=== PATIENT | female | born 1980 | race Caucasian/White ===

== ENCOUNTER → 2018-12-28 | Outpatient (CLI) | payer OTHER ==
[2018-12-28 23:39] LABS: Albumin 3.8 g/dL (3.80-4.90); Albumin/Globulin Ratio 1.65 (1.60-3.17); Anion Gap 8.7 mmol/L (4.00-12.00); BUN/Creat Ratio 23.33 Ratio (12.00-20.00); Calcium 8.7 mg/dL (8.7-10.3); Carbon Dioxide 25.3 mmol/L (21.6-31.8); Globulin 2.3 g/dL (1.6-3.3); Potassium 4.6 mmol/L (3.5-5.5); Total Bilirubin 0.4 mg/dL (0.3-1.2); Total Protein 6.1 g/dL (6.2-8.2)
== END | disposition home or self-care (01) ==
LOC: LABWHC1 14:20
PROVIDERS: ATTEND Family Medicine
DX: F19.10 Other psychoactive substance abuse, uncomplicated (principal)
CPT/HCPCS: 36415; 80053

== ENCOUNTER 2023-07-03 10:18 | Emergency (ER) | payer OTHER ==
--- NOTE | 2023-07-03 10:42 | ED ---
URI HPI - General Chief Complaint: Upper Respiratory Infection Stated Complaint: congestion Time Seen by Provider: 07/03/23 10:30 Source: patient, RN notes reviewed Mode of arrival: ambulatory Limitations: no limitations - History of Present Illness Initial Comments: 43-year-old female, with no significant past medical history, presents to the emergency department from [place] for chief complaint of cough, congestion over the last 4 days. States that her symptoms started 4 days ago with an episode of emesis. She states that she has had a worsening dry cough, runny nose, shortness of breath, congestion and has had a fever over the last 2 days felt rundown and fatigued. She also states she been experiencing postnasal drip and sinus pressure. patient was given Tylenol and Motrin this morning for fever. She admits to rib pain on inspiration that started 4 days ago is reproducible to palpation worsens with cough. Denies chest pain, palpitations, dizziness, diarrhea, nausea. - Related Data Previous Rx's Medication Instructions Recorded Azithromycin [Zithromax] 500 mg PO DAILY #5 tab 07/03/23 Allergies Allergy/AdvReac Type Severity Reaction Status Date / Time haloperidol [From Haldol] AdvReac Unknown Verified 07/03/23 10:23 Review of Systems ROS Statement: Those systems with pertinent positive or pertinent negative responses have been documented in the HPI. ROS Other: All systems not noted in ROS Statement are negative. Past Medical History Additional Past Medical History / Comment(s): kidney stones Additional Past Surgical History / Comment(s): 3 c sections, abcess lances, Past Psychological History: Bipolar Smoking Status: Current every day smoker Past Alcohol Use History: None Reported Past Drug Use History: Opiates General Exam Limitations: no limitations General appearance: alert, in no apparent distress Head exam: Present: atraumatic, normocephalic, normal inspection Eye exam: Present: normal appearance, PERRL, EOMI. Absent: scleral icterus, conjunctival injection, periorbital swelling ENT exam: Present: normal exam, mucous membranes moist Neck exam: Present: normal inspection, lymphadenopathy (anterior cervical and tonsillar). Absent: tenderness, meningismus Respiratory exam: Present: wheezes, rhonchi, decreased breath sounds Cardiovascular Exam: Present: regular rate, normal rhythm, tachycardia GI/Abdominal exam: Present: soft, normal bowel sounds. Absent: distended, tenderness, guarding, rebound, rigid Extremities exam: Present: normal inspection, full ROM, normal capillary refill. Absent: tenderness, pedal edema, joint swelling, calf tenderness Back exam: Present: normal inspection Neurological exam: Present: alert, oriented X3, CN II-XII intact Psychiatric exam: Present: normal affect, normal mood Skin exam: Present: warm, dry, intact, normal color. Absent: rash Course Vital Signs 07/03/23 07/03/23 07/03/23 10:20 10:30 11:31 Temperature 98.8 F Pulse Rate 113 H 94 Respiratory 18 16 18 Rate Blood Pressure 135/70 124/84 O2 Sat by Pulse 95 94 L Oximetry Medical Decision Making - Medical Decision Making Was pt. sent in by a medical professional or institution (, PA, DRIP PUMPER, urgent care, hospital, or usp...) When possible be specific @ -Was sent from [facility] Did you speak to anyone other than the patient for history (EMS, parent, family, police, friend...)? What history was obtained from this source @ -No Did you review nursing and triage notes (agree or disagree)? Why? @ -I reviewed and agree with nursing and triage notes Were old charts reviewed (outside hosp., previous admission, EMS record, old EKG, old radiological studies, urgent care reports/EKG's, usp records)? Report findings @ -No old charts were reviewed Differential Diagnosis (chest pain, altered mental status, abdominal pain women, abdominal pain men, vaginal bleeding, weakness, fever, dyspnea, syncope, headache, dizziness, GI bleed, back pain, seizure, CVA, palpatations, mental health, musculoskeletal)? @ -MDM differential: Influenza, common cold, bronchitis, penumonia, RSV, COVID19, this is not an all inclusive list. EKG interpreted by me (3pts min.). @ -None X-rays interpreted by me (1pt min.). @ -Chest x-ray reveals subtle interstitial infiltrates, patchy atelectasis versus pneumonia medial right middle lobe CT interpreted by me (1pt min.). @ -None done U/S interpreted by me (1pt. min.). @ -None done What testing was considered but not performed or refused? (CT, X-rays, U/S, labs)? Why? @ -None What meds were considered but not given or refused? Why? @ -None Did you discuss the management of the patient with other professionals (professionals i.e. ., PA, DRIP PUMPER, lab, RT, psych nurse, social work therapist, freight loading supervisor, teacher, guest relations officer, case worker)? Give summary @ -No Was smoking cessation discussed for >3mins.? @ -No Was critical care preformed (if so, how long)? @ -No Were there social determinants of health that impacted care today? How? (Homelessness, low income, unemployed, alcoholism, drug addiction, transportation, low edu. Level, literacy, decrease access to med. care, care home, rehab)? @ -No Was there de-escalation of care discussed even if they declined (Discuss DNR or withdrawal of care, Hospice)? DNR status @ -No What co-morbidities impacted this encounter? (DM, HTN, Smoking, COPD, CAD, Cancer, CVA, ARF, Chemo, Hep., AIDS, mental health diagnosis, sleep apnea, morbid obesity)? @ -smoking Was patient admitted / discharged? Hospital course, mention meds given and route, prescriptions, significant lab abnormalities, going to OR and other pertinent info. @ -Discharged. 23-year-old female presents to emergency department with chief complaint of congestion, cough. Chest x-ray reveals subtle interstitial infiltra mirella, patchy atelectasis versus pneumonia medial right middle lobe. vitals stable. Due to patient's presenting symptoms of worsening cough, and physical exam, and results of chest x-ray, will treat patient for atypical pneumonia due to patient's current living situation at [facility]. Given 1 g IM of Rocephin in the ED, and prescribed 5-day course of azithromycin. Undiagnosed new problem with uncertain prognosis? @ -No Drug Therapy requiring intensive monitoring for toxicity (Heparin, Nitro, Insulin, Cardizem)? @ -No Were any procedures done? @ -No Diagnosis/symptom? @ -Atypical pneumonia Acute, or Chronic, or Acute on Chronic? @ -Acute Uncomplicated (without systemic symptoms) or Complicated (systemic symptoms)? @ -Complicated Side effects of treatment? @ -No Exacerbation, Progression, or Severe Exacerbation? @ -No Poses a threat to life or bodily function? How? (Chest pain, USA, [place], pneumonia, PE, COPD, DKA, ARF, appy, cholecystitis, CVA, Diverticulitis, Homicidal, Suicidal, threat to staff... and all critical care pts) @ -No - Lab Data Lab Results 07/03/23 Range/Units 10:43 Influenza Type A (PCR) Not Detected (Not Detectd) Influenza Type B (PCR) Not Detected (Not Detectd) RSV (PCR) Detected A (Not Detectd) SARS-CoV-2 (PCR) Not Detected (Not Detectd) Disposition Clinical Impression: Atypical pneumonia Narrative: Please return to the Emergency Department if symptoms worsen or any other concerns. Patient discharged with 5-day course of azithromycin. Disposition: HOME SELF-CARE Condition: Good Instructions (If sedation given, give patient instructions): Pneumonia (ED) Prescriptions: Azithromycin [Zithromax] 500 mg PO DAILY #5 tab Is patient prescribed a controlled substance at d/c from ED?: No Referrals: None,Stated [Primary Care Provider] - 1-2 days Time of Disposition: 11:55
[2023-07-03 10:45] VITALS: TEMP 98.8
--- NOTE | 2023-07-03 11:15 | XR ---
EXAMINATION TYPE: XR chest 2V DATE OF EXAM: 07/03/2023 COMPARISON: None HISTORY: 43-year-old female with cough and congestion TECHNIQUE: PA and lateral views FINDINGS: The cardiomediastinal silhouette, aorta, and pulmonary vasculature are within normal limits. Increase d interstitial opacity. More focal patchy opacity medial right base. No pleural effusion. IMPRESSION: There may be underlying subtle interstitial infiltrates. Correlate for bronchitis or atypical pneumon ias. More focal patchy atelectasis versus pneumonia medial right middle lobe.
[2023-07-03 11:47] VITALS: BP 124/84; PULSE 94; RESP 18
[2023-07-03] MEDS: cefTRIAXone 1,000 MG VIAL (IM USE) IM STA (12:02)
== END 2023-07-03 12:08 | disposition home or self-care (01) ==
LOC: EC 10:18
DX: J18.9 Pneumonia, unspecified organism (principal); F17.200 Nicotine dependence, unspecified, uncomplicated; Z86.59 Personal history of other mental and behavioral disorders; Z88.8 Allergy status to other drugs, medicaments and biological substances; Z20.822 Contact with and (suspected) exposure to COVID-19
CPT/HCPCS: 87636; 71046; 99283; 96372; J0696

== ENCOUNTER 2023-07-12 11:07 | Emergency (ER) | payer OTHER ==
--- NOTE | 2023-07-12 11:36 | ED ---
General Adult HPI - General Chief complaint: Shortness of Breath Stated complaint: JENNIFER Time Seen by Provider: 07/12/23 11:10 Source: patient, EMS, RN notes reviewed, old records reviewed Mode of arrival: EMS Limitations: no limitations - History of Present Illness Initial comments: This is a 43-year-old female who presents to the emergency department from [place]. Patient is here for heroin abuse she states has been clean for a month and been at [place] for 3 weeks. Patient comes in today because she was having some difficulty breathing and some cough. Patient states 9 days ago she was told she had RSV and pneumonia. Patient states she is a smoker and continues to smoke. Patient denies any chest pain or palpitations. Patient denies any back pain. Patient has any fever or chills. Patient denies any abdominal pain. - Related Data Home Medications Medication Instructions Recorded Confirmed Acetaminophen Tab [Tylenol] 650 mg PO Q4H PRN MDD 2,600 mg 07/12/23 07/12/23 Albuterol Nebulized [Ventolin 2.5 mg INHALATION RT-Q4H PRN 07/12/23 07/12/23 Nebulized] Buprenorphine/Naloxone 8Mg/2Mg 1 film SL BID 07/12/23 07/12/23 [Suboxone 8-2Mg Film] Calcium, Magnesium, Zinc, With 1 tab PO TID PRN 07/12/23 07/12/23 Vitamin D3 334/134/5mg Chlorpheniramine Maleate 4 mg PO Q4H PRN 07/12/23 07/12/23 [Chlor-Trimeton] Docusate [Colace] 100 mg PO BID PRN 07/12/23 07/12/23 Eucalyptus Oil/Menthol/Camphor 1 applic TOPICAL DIRECTED PRN 07/12/23 07/12/23 [Vicks Vaporub Ointment] Hyoscyamine Sulfate [Levsin] 0.125 mg PO QID PRN 07/12/23 07/12/23 Ibuprofen [Motrin Ib] 600 mg PO Q6H PRN 07/12/23 07/12/23 busPIRone HCl [Buspar] 10 mg PO TID 07/12/23 07/12/23 cloNIDine HCL [Catapres] 0.1 - 0.3 mg PO Q4H PRN 07/12/23 07/12/23 ondansetron HCL [Zofran] 8 mg PO Q6H PRN 07/12/23 07/12/23 traZODone HCL [Desyrel] 50 - 150 mg PO HS PRN 07/12/23 07/12/23 Previous Rx's Medication Instructions Recorded Oseltamivir [Tamiflu] 75 mg PO Q12HR #10 cap 07/12/23 Allergies Allergy/AdvReac Type Severity Reaction Status Date / Time haloperidol [From Haldol] AdvReac Unknown Verified 07/12/23 12:24 Review of Systems ROS Statement: Those systems with pertinent positive or pertinent negative responses have been documented in the HPI. ROS Other: All systems not noted in ROS Statement are negative. Past Medical History Additional Past Medical History / Comment(s): kidney stones History of Any Multi-Drug Resistant Organisms: None Reported Additional Past Surgical History / Comment(s): 3 c sections, abcess lances, Past Psychological History: Bipolar Smoking Status: Current every day smoker Past Alcohol Use History: None Reported Past Drug Use History: Heroin, Opiates General Exam - General Exam Comments Initial Comments: GENERAL: Patient is well-developed and well-nourished. Patient is nontoxic and well- hydrated and is in mild distress. ENT: Neck is soft and supple. No significant lymphadenopathy is noted. Oropharynx is clear. Moist mucous membranes. Neck has full range of motion without eliciting any pain. EYES: The sclera were anicteric and conjunctiva were pink and moist. Extraocular movements were intact and pupils were equal round and reactive to light. Eyelids were unremarkable. PULMONARY: Unlabored respirations. Good breath sounds bilaterally. Expiratory wheeze CARDIOVASCULAR: There is a regular rate and rhythm without any murmurs gallops or rubs. ABDOMEN: Soft and nontender with normal bowel sounds. SKIN: Skin is clear with no lesions or rashes and otherwise unremarkable. NEUROLOGIC: Patient is alert and oriented x3. Cranial nerves II through XII are grossly intact. Motor and sensory are also intact. Normal speech, volume and content. Symmetrical smile. MUSCULOSKELETAL: Normal extremities with adequate strength and full range of motion. LYMPHATICS: No significant lymphadenopathy is noted PSYCHIATRIC: Normal psychiatric evaluation. Limitations: no limitations Course Vital Signs 07/12/23 07/12/23 07/12/23 11:10 11:51 11:59 Temperature 98.1 F Pulse Rate 93 90 90 Respiratory 18 Rate Blood Pressure 120/71 O2 Sat by Pulse 92 L Oximetry 07/12/23 13:25 Temperature Pulse Rate 103 H Respiratory 20 Rate Blood Pressure 103/77 O2 Sat by Pulse 96 Oximetry Medical Decision Making - Medical Decision Making EKG shows a sinus rhythm at 92 bpm IN interval 161 QRS is 89 QT interval 378 QTc is 428. Patient EKG shows no ST segment ovation or depression. Was pt. sent in by a medical professional or institution (, PA, QUARTER DOPER, urgent ca re, hospital, or halfway...) When possible be specific @ -Patient was sent in by [facility] Did you speak to anyone other than the patient for history (EMS, parent, family, police, friend...)? What history was obtained from this source @ -No Did you review nursing and triage notes (agree or disagree)? Why? @ -I reviewed and agree with nursing and triage notes Were old charts reviewed (outside hosp., previous admission, EMS record, old EKG, old radiological studies, urgent care reports/EKG's, halfway records)? Report findings @ -No old charts were reviewed Differential Diagnosis (chest pain, altered mental status, abdominal pain women, abdominal pain men, vaginal bleeding, weakness, fever, dyspnea, syncope, headache, dizziness, GI bleed, back pain, seizure, CVA, palpatations, mental health, musculoskeletal)? @ -Differential Dyspnea: Coronary syndrome, arrhythmia, influenza A, influenza B, COVID, RSV tamponade, asthma, COPD, pulmonary embolism, pneumonia, pneumothorax, pulmonary effusion, anaphylaxis, diabetic ketoacidosis, flailed chest, pulmonary contusion, diaphragmatic rupture, anemia, neuromuscular, this is not meant to be an all- inclusive list. EKG interpreted by me (3pts min.). @ -As above X-rays interpreted by me (1pt min.). @ -Chest x-ray shows no acute abnormality CT interpreted by me (1pt min.). @ -None done U/S interpreted by me (1pt. min.). @ -None done What testing was considered but not performed or refused? (CT, X-rays, U/S, labs)? Why? @ -None What meds were considered but not given or refused? Why? @ -None Did you discuss the management of the patient with other professionals (professionals i.e. , PA, QUARTER DOPER, lab, RT, psych nurse, social media campaign manager, agricultural purchasing agent, teacher, medical scientific officer, case technician)? Give summary @ -No Was smoking cessation discussed for >3mins.? @ -No Was critical care preformed (if so, how long)? @ -No Were there social determinants of health that impacted care today? How? (Homelessness, low income, unemployed, alcoholism, drug addiction, transportation, low edu. Level, literacy, decrease access to med. care, [facility], rehab)? @ -No Was there de-escalation of care discussed even if they declined (Discuss DNR or withdrawal of care, Hospice)? DNR status @ -No What co-morbidities impacted this encounter? (DM, HTN, Smoking, COPD, CAD, Cancer, CVA, ARF, Chemo, Hep., AIDS, mental health diagnosis, sleep apnea, morbid obesity)? @ -None Was patient admitted / discharged? Hospital course, mention meds given and route, prescriptions, significant lab abnormalities, going to OR and other pertinent info. @ -Patient was influenza a positive she will be placed on Tamiflu. Undiagnosed new problem with uncertain prognosis? @ -No Drug Therapy requiring intensive monitoring for toxicity (Heparin, Nitro, Insu gino, Cardizem)? @ -No Were any procedures done? @ -No Diagnosis/symptom? @ -Influenza A Acute, or Chronic, or Acute on Chronic? @ -Acute Uncomplicated (without systemic symptoms) or Complicated (systemic symptoms)? @ -Uncomplicated Side effects of treatment? @ -No Exacerbation, Progression, or Severe Exacerbation? @ -No Poses a threat to life or bodily function? How? (Chest pain, [place], [place], pneumonia, PE, COPD, DKA, ARF, appy, cholecystitis, CVA, Diverticulitis, Homicidal, Suicidal, threat to staff... and all critical care pts) @ -No - Lab Data Lab Results 07/12/23 Range/Units 11:30 Influenza Type A (PCR) Detected A (Not Detectd) Influenza Type B (PCR) Not Detected (Not Detectd) RSV (PCR) Detected A (Not Detectd) SARS-CoV-2 (PCR) Not Detected (Not Detectd) Disposition Clinical Impression: Influenza Disposition: HOME SELF-CARE Condition: Good Instructions (If sedation given, give patient instructions): Influenza (ED) Prescriptions: Oseltamivir [Tamiflu] 75 mg PO Q12HR #10 cap Is patient prescribed a controlled substance at d/c from ED?: No Referrals: None,Stated [Primary Care Provider] - 1-2 days Time of Disposition: 13:34
[2023-07-12 11:44] VITALS: TEMP 98.1
[2023-07-12] MEDS: IPRATROPIUM-ALBUTEROL 3 ML NEB INHALATION STA (11:47)
--- NOTE | 2023-07-12 12:16 | XR ---
EXAMINATION TYPE: XR chest 2V DATE OF EXAM: 07/12/2023 COMPARISON: 07/13/2023 TECHNIQUE: PA and lateral views submitted. HISTORY: Cough FINDINGS: The lungs are clear and there is no pneumothorax, pleural effusion, or focal pneumonia. Heart size normal and no overt failure. Osseous structures stable. There is improvement in area of subsegmental consolidation medial margin right lung base. May be postinfectious. Small pulmonary nodule not exclud ed. Interstitium is stable. IMPRESSION: 1. Improving right lower lobe infiltrate..
[2023-07-12 13:28] VITALS: BP 103/77; PULSE 103; RESP 20
== END 2023-07-12 13:44 | disposition home or self-care (01) ==
LOC: EC 11:07
DX: J10.1 Influenza due to other identified influenza virus with other respiratory manifestations (principal); F17.200 Nicotine dependence, unspecified, uncomplicated; F11.90 Opioid use, unspecified, uncomplicated; F15.90 Other stimulant use, unspecified, uncomplicated; Z88.8 Allergy status to other drugs, medicaments and biological substances
CPT/HCPCS: 71046; 87636; 93005; 94640; 99285